=== PATIENT | male | born 1960 | race Two or more races ===

== ENCOUNTER → 2024-09-27 | Outpatient (CLI) | payer MEDICAID, SELFPAY ==
--- NOTE | 2024-09-27 09:00 | XR_ITS ---
Examination: Abdomen sonogram, complete Date and time of exam: September 27, 2024 at 0928 hours INDICATIONS: Clinical diagnosis unspecified abdominal pain. Technique: Multiple real-time grayscale transabdominal sonographic images of the abdomen have been obtained. Findings: Normal gallbladder Normal common bile duct 0.2 cm Pancreatic head 3.2 cm Aorta not enlarged Liver 19.2 cm no focal liver lesions Normal hepatopedal portal venous flow Patent IVC Right kidney 9.2 cm cortex 1.5 cm Left kidney 10.3 cm cortex 1.5 cm Spleen 9.7 cm IMPRESSION: Moderate hepatomegaly no focal liver lesions Normal gallbladder
--- NOTE | 2024-09-27 09:30 | XR_ITS ---
Examination: Testicular sonography complete TECHNIQUE: Grayscale sonographic images testes, assessment arterial inflow venous outflow Doppler spectral analysis carful analysis Date and time: September 27, 2024 0943 hours INDICATIONS: Onset right testicular pain and swelling beginning 3 years ago FINDINGS: Right testis 5.0 cm epididymis 35 mm 5 mm right epididymal cyst Arterial flow testicle. No testicular mass Mild hydrocele Left testis 5.1 cm epididymis 38 mm Arterial flow testicle. No testicular mass IMPRESSION: No testicular torsion or testicular mass Bilateral epididymitis
== END | disposition home or self-care (01) ==
PROVIDERS: PCP Behavior Technician; Referring Provider Behavior Technician; Visit Provider Behavior Technician
DX: R16.0 Hepatomegaly, not elsewhere classified (principal); N45.1 Epididymitis
CPT/HCPCS: 76700; 76870

== ENCOUNTER → 2025-01-31 | Outpatient (CLI) | payer MEDICAID, SELFPAY ==
--- NOTE | 2025-01-31 10:30 | XR_ITS ---
Examination: Retroperitoneal ultrasound, complete Technique: Multiple high resolution grayscale images of the retroperitoneum obtained, including kidneys and bladder. Exam date and time:January 31, 2025 1010 hours INDICATIONS: Flank pain lower back pain beginning one year ago FINDINGS: Right kidney 10.4 cm cortex 1.5 cm Left kidney 9.4 cm cortex 1.6 cm Mild renal parenchymal scar formation. 11 mm left renal cyst No hydronephrosis No bladder mass or bladder calculi Bladder prevoid 2325 cc Negative for prostatomegaly, no prostate nodules IMPRESSION: Bilateral renal cortical thinning Mild bilateral renal parenchymal scar formation No hydronephrosis Negative for prostatomegaly
== END | disposition home or self-care (01) ==
PROVIDERS: PCP Surgery; Referring Provider Surgery; Visit Provider Surgery
DX: N28.89 Other specified disorders of kidney and ureter (principal)
CPT/HCPCS: 76770

== ENCOUNTER → 2025-04-21 | Outpatient (CLI) | payer MEDICAID, SELFPAY ==
--- NOTE | 2025-04-21 07:00 | XR_ITS ---
MRI abdomen, without contrast. MRCP Date and time of exam: 04/21/2025 at 7:04 a.m. CLINICAL HISTORY: Hepatomegaly abnormal serum enzymes on blood test. Patient complains of right-sided abdominal pain for 1 year Technique: Multiple axial and coronal images of the abdomen have been obtained with the Siemens 1.5T MRI scanner. Images obtained included T1 weighted transverse images, T2-weighted transverse images, T2-weighted transverse images fat-suppressed, T2 weighted haste fat suppressed transverse images, T1 weighted images, in and out of phase images, T2-weighted coronal images, breath hold, T2 weighted haze coronal images as well as T2 weighted coronal thick slab images, MRCP. Findings: A very high quality study has been obtained the appearance and signal intensity in the liver and spleen are normal. There might be very mild enlargement of the liver. The gallbladder is well seen and appears normal the cystic duct and the intrahepatic and extrahepatic bile ducts are normal in appearance and normal in size. The main pancreatic duct is beautiful is seen throughout the entire pancreas and is normal, and there is beautiful visualization of the entire pancreas which is normal in appearance. Both adrenal glands are normal, no para-aortic lymphadenopathy is seen. Both kidneys show no evidence of any worrisome abnormalities, however there are numerous fluid-filled cysts in each kidney, most of them are exceedingly tiny, about 1 mm in diameter. There is a 1 cm slightly more prominent cyst at the lower pole of the right kidney and anterior lower pole of the left kidney. All loops of small bowel and colon appear normal. No abnormalities are seen in the spine or spinal canal. There is moderate cardiomegaly in the chest. IMPRESSION: 1. There is beautiful visualization of the gallbladder, cystic duct and all biliary ducts which are perfectly normal. 2. Beautiful visualization of the entire pancreas and pancreatic duct which appear normal. 3 there are numerous very tiny fluid-filled cysts in both kidneys which otherwise are normal in appearance. 4. Borderline prominence in the size of the liver signal intensity appears to 5. There is moderate cardiomegaly. There also appears to be left ventricular muscular hypertrophy.
== END | disposition home or self-care (01) ==
PROVIDERS: PCP Physician Assistant; Referring Provider Behavior Technician; Visit Provider Behavior Technician
DX: N28.1 Cyst of kidney, acquired (principal); I51.7 Cardiomegaly; M62.89 Other specified disorders of muscle
CPT/HCPCS: 74181